=== PATIENT | male | born 1995 | race Two or more races ===

== ENCOUNTER 2021-09-25 17:00 | Inpatient (IN) | payer SELFPAY ==
[2021-09-25] VITALS (7 sets, daily range): BP systolic 111–121; BP diastolic 57–68
[~2021-09-25] VITALS: Ht 175.3 cm; Wt 70.2 kg
[2021-09-25] MEDS ORDERED: PANTOPRAZOLE 40 MG/10 ML VIAL INJ IV ONE (17:45)
[2021-09-25] MEDS ORDERED: IOHEXOL 300 MG/ML 100ML BOTTLE IJ ONE (17:49)
[2021-09-25 18:29] LABS: Basophils # (auto) 0 10 ^3/uL (0-0.2); Basophils % (auto) 1.1 % (0.0-2.0); Eosinophils # (auto) 0.1 10 ^3/uL (0-0.8); Eosinophils % (auto) 1.4 % (0.0-7.0); Lymphocytes # (auto) 1.2 10 ^3/uL (0.4-5.4); Lymphocytes % (auto) 27.5 % (10.0-50.0); Monocytes # (auto) 0.5 10 ^3/uL (0-1.3); Monocytes % (auto) 11.8 % (0.0-12.0); Neutrophils # (auto) 2.5 10 ^3/uL (1.6-8.6); Neutrophils % (auto) 58.2 % (37.0-80.0); White Blood Cell 4.3 10^3/uL (4.4-10.8)
[2021-09-25 18:30] LABS: Hematocrit 16.9 % (41.0-53.0); Mean Corpuscular Hemoglobin 14.7 pg (28.0-32.0); Mean Corpuscular Hgb Conc. 27.2 g/dL (32.0-36.0); Red Blood Cells 3.14 10^6/uL (4.5-5.90); Red Cell Distribution Width 21.3 % (11.8-14.3)
[2021-09-25 18:33] LABS: INR 0.93 (0.9-1.15); Partial Thromboplastin Time 22.8 sec (24.6-33.4); Potassium 4.1 mmol/L (3.5-5.1)
[2021-09-25 18:35] LABS: Hemoglobin 4.6 g/dL (13.5-17.5)
[2021-09-25 18:39] LABS: Albumin 2.7 g/dL (3.4-5.0); Bilirubin, Total 1.2 mg/dL (0.2-1.0); Calcium 8.7 mg/dL (8.5-10.1); Total Protein 7.5 g/dL (6.4-8.2)
[2021-09-26] VITALS (9 sets, daily range): BP systolic 98–117; BP diastolic 45–64
[2021-09-26] MEDS ORDERED: MORPHINE SULFATE INJ 2 MG/ml SYRG IV PRN ×2 (03:00)
[2021-09-26] MEDS ORDERED: ONDANSETRON HCL 4 MG/2 ML VIAL IV PRN (03:00)
[2021-09-26] MEDS ORDERED: DOCUSATE SOD 100 MG CAP PO PRN (03:00)
[2021-09-26] MEDS ORDERED: ACETAMINOPHEN 325 MG TAB PO PRN (03:00)
[2021-09-26] MEDS ORDERED: HYDROcodone-ACET 5/325MG TAB PO PRN (03:00)
[2021-09-26] MEDS ORDERED: NITROGLYCERIN 0.4 MG SL TAB SL PRN (03:00)
[2021-09-26] MEDS ORDERED: IBUPROFEN 600 MG TAB PO PRN (03:15)
[2021-09-26] MEDS: SODIUM CHLOR 0.9% PF (SALINE LOCK) 10ML VIAL/SYR IV SCH ×2 (06:19→21:36)
[2021-09-26] MEDS ORDERED: ENOXAPARIN SOD 40 MG/0.4 ML SYRINGE SC SCH (10:00)
[2021-09-26] MEDS: FAMOTIDINE (10MG/ML) 2ML VL IV SCH ×2 (10:01→21:37)
[2021-09-26 11:07] LABS: Eosinophils # (auto) 0.1 10 ^3/uL (0-0.8); Lymphocytes # (auto) 0.7 10 ^3/uL (0.4-5.4)
[2021-09-26 11:10] LABS: Basophils # (auto) 0 10 ^3/uL (0-0.2); Basophils % (auto) 1.1 % (0.0-2.0); Eosinophils % (auto) 3.4 % (0.0-7.0); Mean Corpuscular Hemoglobin 17.9 pg (28.0-32.0); Mean Corpuscular Hgb Conc. 28.9 g/dL (32.0-36.0); Mean Corpuscular Volume 61.8 fL (80.0-100.0); Monocytes # (auto) 0.4 10 ^3/uL (0-1.3); Monocytes % (auto) 10.6 % (0.0-12.0); Neutrophils # (auto) 2.7 10 ^3/uL (1.6-8.6); Neutrophils % (auto) 67.9 % (37.0-80.0); Nucleated Red Blood Cells % 0.3 %; Red Blood Cells 3.88 10^6/uL (4.5-5.90)
[2021-09-26 11:20] LABS: Albumin 2.4 g/dL (3.4-5.0); Calcium 8.6 mg/dL (8.5-10.1); Potassium 3.8 mmol/L (3.5-5.1)
[2021-09-26 11:25] LABS: BUN/Creatinine Ratio 9.3; Bilirubin, Total 1.2 mg/dL (0.2-1.0); Total Protein 7.3 g/dL (6.4-8.2)
[2021-09-26 11:59] LABS: Hemoglobin 6.9 g/dL (13.5-17.5)
[2021-09-26 22:13] LABS: Hematocrit 23.5 % (41.0-53.0)
[2021-09-26 22:17] LABS: Hemoglobin 6.8 g/dL (13.5-17.5)
[2021-09-27] VITALS (10 sets, daily range): BP systolic 101–115; BP diastolic 52–86
[2021-09-27] MEDS: SODIUM CHLOR 0.9% PF (SALINE LOCK) 10ML VIAL/SYR IV SCH ×3 (06:01→21:41)
[2021-09-27 07:45] LABS: Eosinophils # (auto) 0.2 10 ^3/uL (0-0.8); Hemoglobin 9.1 g/dL (13.5-17.5); Lymphocytes # (auto) 1.3 10 ^3/uL (0.4-5.4); Monocytes # (auto) 0.5 10 ^3/uL (0-1.3); Neutrophils # (auto) 2.6 10 ^3/uL (1.6-8.6); White Blood Cell 4.6 10^3/uL (4.4-10.8)
[2021-09-27 07:46] LABS: Basophils # (auto) 0.1 10 ^3/uL (0-0.2); Basophils % (auto) 1.3 % (0.0-2.0); Eosinophils % (auto) 3.8 % (0.0-7.0); Hematocrit 29.9 % (41.0-53.0); Lymphocytes % (auto) 28.7 % (10.0-50.0); Mean Corpuscular Hgb Conc. 30.4 g/dL (32.0-36.0); Mean Corpuscular Volume 65.8 fL (80.0-100.0); Monocytes % (auto) 10.4 % (0.0-12.0); Neutrophils % (auto) 55.8 % (37.0-80.0); Nucleated Red Blood Cells % 0.3 %; Red Blood Cells 4.54 10^6/uL (4.5-5.90)
[2021-09-27 08:07] LABS: % Iron Saturation 3.8 % (20-55); Albumin 2.5 g/dL (3.4-5.0); Calcium 8.6 mg/dL (8.5-10.1)
[2021-09-27 08:10] LABS: BUN/Creatinine Ratio 10.1; Bilirubin, Total 1.2 mg/dL (0.2-1.0); Total Protein 7.4 g/dL (6.4-8.2)
[2021-09-27 08:18] LABS: Red Cell Distribution Width 34.1 % (11.8-14.3)
[2021-09-27 08:28] LABS: Ferritin 3.2 ng/mL (10-322)
[2021-09-27] MEDS: FAMOTIDINE (10MG/ML) 2ML VL IV SCH ×2 (09:23→21:41)
[2021-09-27 22:15] LABS: Urine Bacteria NONE SEEN /hpf (None Seen); Urine Blood Negative /uL (Negative); Urine Mucus FEW (None Seen); Urine WBC 3 /hpf (0 - 3)
[2021-09-28 05:00] VITALS: BP 115/64
[2021-09-28 09:00] VITALS: BP 107/60
[2021-09-28] MEDS ORDERED: GOLYTELY 4L KIT PO ONE (09:00)
[2021-09-28] MEDS: FAMOTIDINE (10MG/ML) 2ML VL IV SCH ×2 (09:45→20:41)
[2021-09-28 13:00] VITALS: BP 131/72
[2021-09-28] MEDS: SODIUM CHLOR 0.9% PF (SALINE LOCK) 10ML VIAL/SYR IV SCH ×2 (14:00→20:41)
[2021-09-28 16:54] VITALS: BP 111/64
[2021-09-28 22:00] VITALS: BP 104/63
[2021-09-29 05:00] VITALS: BP 108/76
[2021-09-29] MEDS: SODIUM CHLOR 0.9% PF (SALINE LOCK) 10ML VIAL/SYR IV SCH ×3 (05:39→22:22)
[2021-09-29] MEDS ORDERED: MAGNESIUM CITRATE SOLUTION 300 ML BTL PO ONE (06:00)
[2021-09-29] MEDS ORDERED: GOLYTELY 4L KIT PO ONE (06:00)
[2021-09-29 07:36] LABS: Eosinophils # (auto) 0.2 10 ^3/uL (0-0.8); Mean Corpuscular Volume 65.3 fL (80.0-100.0)
[2021-09-29 07:40] LABS: Basophils # (auto) 0 10 ^3/uL (0-0.2); Eosinophils % (auto) 3.4 % (0.0-7.0); Hematocrit 29.9 % (41.0-53.0); Lymphocytes # (auto) 1.3 10 ^3/uL (0.4-5.4); Lymphocytes % (auto) 27.2 % (10.0-50.0); Mean Corpuscular Hemoglobin 19.7 pg (28.0-32.0); Mean Corpuscular Hgb Conc. 30.1 g/dL (32.0-36.0); Monocytes # (auto) 0.7 10 ^3/uL (0-1.3); Monocytes % (auto) 14.2 % (0.0-12.0); Neutrophils # (auto) 2.6 10 ^3/uL (1.6-8.6); Neutrophils % (auto) 54.2 % (37.0-80.0); Nucleated Red Blood Cells % 0.2 %; Red Blood Cells 4.57 10^6/uL (4.5-5.90); Red Cell Distribution Width 33.9 % (11.8-14.3); White Blood Cell 4.7 10^3/uL (4.4-10.8)
[2021-09-29 07:45] LABS: Calcium 8.8 mg/dL (8.5-10.1); Potassium 3.8 mmol/L (3.5-5.1)
[2021-09-29 07:52] LABS: Albumin 2.5 g/dL (3.4-5.0); BUN/Creatinine Ratio 11.3; Bilirubin, Total 1.4 mg/dL (0.2-1.0); Total Protein 7.4 g/dL (6.4-8.2)
[2021-09-29 08:03] LABS: INR 0.98 (0.9-1.15)
[2021-09-29 09:00] VITALS: BP 107/72
[2021-09-29] MEDS: FAMOTIDINE (10MG/ML) 2ML VL IV SCH ×2 (09:08→22:22)
[2021-09-29] MEDS ORDERED: NALOXONE HCL 0.4 MG/ML VIAL ONE (09:42)
[2021-09-29] MEDS ORDERED: FLUMAZENIL 0.1 MG/ML INJ 10ML MDV IV ONE (09:42)
[2021-09-29] MEDS ORDERED: SODIUM CHLORIDE LOCK 10 ML ONE (09:42)
[2021-09-29 10:16] LABS: Hepatitis B Surface Antibody Negative (Negative)
[2021-09-29 10:45] LABS: Hepatitis A Total Antibody Positive (Negative)
[2021-09-29 10:56] LABS: Folate (Folic Acid) 11.35 ng/mL (5.38-24)
[2021-09-29] MEDS ORDERED: FUROSEMIDE 40 MG/4 ML VIAL ONE (11:28)
[2021-09-29 12:39] LABS: Hepatitis C Antibody Negative (Negative)
[2021-09-29 13:00] VITALS: BP 106/75
[2021-09-29] MEDS ORDERED: LIDOCAINE VISCOUS 2% 15ML UD ONE (15:32)
[2021-09-29] MEDS: diphenhdrAMINE HCL 50 MG/1 ML VL ONE ×2 (15:39→15:40)
[2021-09-29] MEDS: fentaNYL CITRATE 100 MCG/2 ML VL ONE ×3 (15:39→15:52)
[2021-09-29] MEDS: MIDAZOLAM HCL 5 MG/ML-1ML VIAL ONE ×3 (15:39→15:52)
[2021-09-29 22:00] VITALS: BP 112/69
[2021-09-29] MEDS: MESALAMINE 400mg Delayed Release Cap PO SCH (22:23)
[2021-09-29] MEDS: methylPREDNISolone SOD SUCC 125 MG/2 ML VL IV SCH (22:23)
[2021-09-30 05:00] VITALS: BP 115/65
[2021-09-30] MEDS: SODIUM CHLOR 0.9% PF (SALINE LOCK) 10ML VIAL/SYR IV SCH ×3 (06:31→22:55)
[2021-09-30] MEDS: MESALAMINE 400mg Delayed Release Cap PO SCH ×3 (06:31→22:55)
[2021-09-30] MEDS: methylPREDNISolone SOD SUCC 125 MG/2 ML VL IV SCH ×3 (06:31→22:55)
[2021-09-30 08:00] VITALS: BP 107/63
[2021-09-30 09:00] VITALS: BP 107/63
[2021-09-30] MEDS: FAMOTIDINE (10MG/ML) 2ML VL IV SCH ×2 (09:32→22:55)
[2021-09-30] MEDS: PANTOPRAZOLE 40 MG TAB PO SCH (09:32)
[2021-09-30 09:47] LABS: Basophils # (auto) 0 10 ^3/uL (0-0.2); Basophils % (auto) 0.2 % (0.0-2.0); Eosinophils # (auto) 0 10 ^3/uL (0-0.8); Hemoglobin 9.9 g/dL (13.5-17.5); Monocytes # (auto) 0 10 ^3/uL (0-1.3); Neutrophils # (auto) 2.9 10 ^3/uL (1.6-8.6); White Blood Cell 3.4 10^3/uL (4.4-10.8)
[2021-09-30 09:50] LABS: Eosinophils % (auto) 0.1 % (0.0-7.0); Hematocrit 32.7 % (41.0-53.0); Lymphocytes # (auto) 0.4 10 ^3/uL (0.4-5.4); Lymphocytes % (auto) 12.9 % (10.0-50.0); Mean Corpuscular Hemoglobin 20.1 pg (28.0-32.0); Mean Corpuscular Hgb Conc. 30.2 g/dL (32.0-36.0); Mean Corpuscular Volume 66.4 fL (80.0-100.0); Monocytes % (auto) 0.7 % (0.0-12.0); Neutrophils % (auto) 86.1 % (37.0-80.0); Nucleated Red Blood Cells % 0.2 %; Red Blood Cells 4.93 10^6/uL (4.5-5.90)
[2021-09-30 13:00] VITALS: BP_SYST 119; BP_SYST 152; BP_DIAS 56
[2021-09-30 17:00] VITALS: BP 119/59
[2021-09-30 22:00] VITALS: BP 119/62
[2021-10-01 05:00] VITALS: BP 120/54
[2021-10-01] MEDS: SODIUM CHLOR 0.9% PF (SALINE LOCK) 10ML VIAL/SYR IV SCH ×3 (06:51→21:20)
[2021-10-01] MEDS: MESALAMINE 400mg Delayed Release Cap PO SCH ×3 (06:51→21:21)
[2021-10-01] MEDS: methylPREDNISolone SOD SUCC 125 MG/2 ML VL IV SCH ×3 (06:51→21:29)
[2021-10-01 09:00] VITALS: BP 116/59
[2021-10-01] MEDS: PANTOPRAZOLE 40 MG TAB PO SCH (10:54)
[2021-10-01] MEDS: FAMOTIDINE (10MG/ML) 2ML VL IV SCH ×2 (10:54→21:20)
[2021-10-01 11:06] LABS: Basophils # (auto) 0 10 ^3/uL (0-0.2); Basophils % (auto) 0.3 % (0.0-2.0); Eosinophils # (auto) 0 10 ^3/uL (0-0.8); Hematocrit 28.8 % (41.0-53.0); Hemoglobin 8.5 g/dL (13.5-17.5); Lymphocytes # (auto) 0.4 10 ^3/uL (0.4-5.4); Lymphocytes % (auto) 6.2 % (10.0-50.0); Mean Corpuscular Hemoglobin 19.8 pg (28.0-32.0); Mean Corpuscular Hgb Conc. 29.7 g/dL (32.0-36.0); Mean Corpuscular Volume 66.8 fL (80.0-100.0); Monocytes # (auto) 0.3 10 ^3/uL (0-1.3); Monocytes % (auto) 4.7 % (0.0-12.0); Neutrophils # (auto) 5.3 10 ^3/uL (1.6-8.6); Neutrophils % (auto) 88.8 % (37.0-80.0); Red Blood Cells 4.31 10^6/uL (4.5-5.90)
[2021-10-01 11:08] LABS: Red Cell Distribution Width 34.5 % (11.8-14.3)
[2021-10-01 13:00] VITALS: BP 101/60
[2021-10-01 17:00] VITALS: BP 115/64
[2021-10-01 22:00] VITALS: BP 126/67
[2021-10-02 05:12] VITALS: BP 111/60
[2021-10-02] MEDS: SODIUM CHLOR 0.9% PF (SALINE LOCK) 10ML VIAL/SYR IV SCH ×2 (05:44→14:01)
[2021-10-02] MEDS: MESALAMINE 400mg Delayed Release Cap PO SCH ×2 (05:45→17:31)
[2021-10-02] MEDS ORDERED: MESA400C PO ×2 (08:15→08:23)
[2021-10-02] MEDS ORDERED: PRED20TA2 PO (08:15)
[2021-10-02] MEDS ORDERED: PANT40T PO (08:23)
[2021-10-02 09:00] VITALS: BP 117/63
[2021-10-02 09:38] LABS: Basophils # (auto) 0 10 ^3/uL (0-0.2); Basophils % (auto) 0.1 % (0.0-2.0); Eosinophils # (auto) 0 10 ^3/uL (0-0.8); Hematocrit 28.4 % (41.0-53.0); Hemoglobin 8.5 g/dL (13.5-17.5); Lymphocytes # (auto) 0.9 10 ^3/uL (0.4-5.4); Lymphocytes % (auto) 15.1 % (10.0-50.0); Mean Corpuscular Hemoglobin 19.8 pg (28.0-32.0); Mean Corpuscular Hgb Conc. 29.8 g/dL (32.0-36.0); Mean Corpuscular Volume 66.4 fL (80.0-100.0); Monocytes # (auto) 0.7 10 ^3/uL (0-1.3); Monocytes % (auto) 12.9 % (0.0-12.0); Neutrophils # (auto) 4.1 10 ^3/uL (1.6-8.6); Neutrophils % (auto) 71.9 % (37.0-80.0); Red Blood Cells 4.27 10^6/uL (4.5-5.90); White Blood Cell 5.7 10^3/uL (4.4-10.8)
[2021-10-02 09:40] LABS: Red Cell Distribution Width 34.5 % (11.8-14.3)
[2021-10-02] MEDS ORDERED: predniSONE 20 MG TAB PO SCH (10:00)
[2021-10-02] MEDS: PANTOPRAZOLE 40 MG TAB PO SCH (10:32)
[2021-10-02] MEDS: methylPREDNISolone SOD SUCC 125 MG/2 ML VL IV SCH (10:32)
[2021-10-02] MEDS: FAMOTIDINE (10MG/ML) 2ML VL IV SCH (10:33)
[2021-10-02 11:14] LABS: Albumin 2.6 g/dL (3.4-5.0); Calcium 8.9 mg/dL (8.5-10.1)
[2021-10-02 11:16] LABS: BUN/Creatinine Ratio 16.7
[2021-10-02 11:19] LABS: Bilirubin, Total 0.9 mg/dL (0.2-1.0); Total Protein 7.2 g/dL (6.4-8.2)
[2021-10-02 13:00] VITALS: BP 97/50
[2021-10-02 15:45] VITALS: BP 107/72
[2021-10-02 17:00] VITALS: BP 107/53
== END 2021-10-02 21:05 | disposition home or self-care (01) | DRG 377 ==
LOC: ER 17:00 → TELE 09-26 03:05 → TELE-CENTR 09-26 05:30
PROVIDERS: ADMIT Nurse Practitioner Family; ATTEND Family Medicine
PROC: 30233N1 Transfusion of Nonautologous Red Blood Cells into Peripheral Vein, Percutaneous Approach (ICD-10-PCS; principal; 2021-09-25)
PROC: 0DB68ZX Excision of Stomach, Via Natural or Artificial Opening Endoscopic, Diagnostic (ICD-10-PCS; 2021-09-29)
PROC: 0DBG8ZX Excision of Left Large Intestine, Via Natural or Artificial Opening Endoscopic, Diagnostic (ICD-10-PCS; 2021-09-29)
PROC: 0DB98ZX Excision of Duodenum, Via Natural or Artificial Opening Endoscopic, Diagnostic (ICD-10-PCS; 2021-09-29 15:32)
DX: K29.71 Gastritis, unspecified, with bleeding (principal); K85.90 Acute pancreatitis without necrosis or infection, unspecified; K51.911 Ulcerative colitis, unspecified with rectal bleeding; N13.30 Unspecified hydronephrosis; K29.91 Gastroduodenitis, unspecified, with bleeding; D64.9 Anemia, unspecified; E88.09 Other disorders of plasma-protein metabolism, not elsewhere classified; K21.9 Gastro-esophageal reflux disease without esophagitis; F17.200 Nicotine dependence, unspecified, uncomplicated; K44.9 Diaphragmatic hernia without obstruction or gangrene; Z20.822 Contact with and (suspected) exposure to COVID-19
CPT/HCPCS: 36415; 36430; 43239; 45380; 74177; 74181; 76705; 78707; 80053; 81001; 82270; 82607; 82728; 82746; 83540; 83550; 83690; 85014; 85018; 85025; 85610; 85730; 86704; 86706; 86708; 86803; 86850; 86900; 86901; 86920; 87340; 96372; 96374; 96375; C9113; G0378; J2250; J3490